=== PATIENT | male | born 1970 | race Caucasian/White ===

== ENCOUNTER 2021-03-04 19:42 | Emergency (ER) | payer BC ==
[~2021-03-04] VITALS: Ht 175.3 cm; Wt 99.5 kg
[2021-03-04 20:08] VITALS: BP 148/88
[2021-03-04 21:04] LABS: BASOPHILS % (AUTO) 0.7 % (0-1); EOSINOPHILS # (AUTO) 0.1 X10'3 (0-0.9); EOSINOPHILS % (AUTO) 1.3 % (0-6); HEMATOCRIT 46.1 % (42.0-52.0); HEMOGLOBIN 16.1 g/dl (14.0-17.9); LYMPHOCYTES # (AUTO) 1.8 X10'3 (1.1-4.8); LYMPHOCYTES % (AUTO) 43.8 % (21-51); MEAN CORPUSCULAR HEMOGLOBIN 30.8 PG (27.0-31.0); MEAN CORPUSCULAR HGB CONC 34.8 g/dL (33.0-36.5); MEAN CORPUSCULAR VOLUME 88.4 FL (78-98); MEAN PLATELET VOLUME 8.5 FL (7.4-10.4); MONOCYTES # (AUTO) 0.6 X10'3 (0-0.9); MONOCYTES % (AUTO) 13.8 % (2-12); NEUTROPHILS # (AUTO) 1.7 X10'3 (1.8-7.7); NEUTROPHILS % (AUTO) 40.4 % (42-75); PLATELET COUNT 162 X10'3 (140-440); RED BLOOD COUNT 5.22 X10'6 (4.70-6.10); RED CELL DISTRIBUTION WIDTH 12.6 % (11.5-14.5); WHITE BLOOD COUNT 4.2 X10'3 (4.5-11.0)
[2021-03-04] MEDS ORDERED: dexamethasone sod phosphate 10mg/ml inj PO STA (21:09)
[2021-03-04 21:12] LABS: ALANINE AMINOTRANSFERASE 57 U/L (12-78); ALBUMIN 3.9 G/DL (3.4-5.0); ALKALINE PHOSPHATASE 58 IU/L (46-116); ANION GAP 10 (8-16); ASPARTATE AMINO TRANSFERASE 37 U/L (10-37); BILIRUBIN,TOTAL 0.6 MG/DL (0.1-1.0); BLOOD UREA NITROGEN 13 MG/DL (7-18); BUN/CREATININE RATIO 14.4 (5.4-32.0); CALCIUM 9.5 MG/DL (8.5-10.1); CHLORIDE 99 MMOL/L (99-107); GLUCOSE 281 MG/DL (70-104); SODIUM 137 MMOL/L (135-145); TOTAL CARBON DIOXIDE 28.4 MMOL/L (24-32); TOTAL PROTEIN 7.7 G/DL (6.4-8.2); eGFR 90 ML/MIN
[2021-03-04] MEDS ORDERED: DEXA6TAB6 PO (21:14)
[2021-03-04] MEDS ORDERED: ALBU8.5H17 IH (21:14)
== END 2021-03-04 21:30 | disposition home or self-care (01) ==
LOC: ER 19:43
DX: U07.1 COVID-19 (principal); R06.02 Shortness of breath; R07.89 Other chest pain; E11.9 Type 2 diabetes mellitus without complications; F17.290 Nicotine dependence, other tobacco product, uncomplicated; Z98.890 Other specified postprocedural states; Z88.0 Allergy status to penicillin; Z79.899 Other long term (current) drug therapy
CPT/HCPCS: 36415; 80053; 83880; 84484; 85025; 85379; 93005; 99284; J1100

== ENCOUNTER 2025-01-08 14:07 | Inpatient (IN) | payer BC, MEDICAID ==
[~2025-01-08] VITALS: Ht 175.3 cm; Wt 80.5 kg
[~2025-01-08 14:07] MED LIST: ALBU8.5H17 IH; DEXA6TAB6 PO; METH4TAB81 PO
--- NOTE | 2025-01-08 14:38 | Physician Documentation ---
History of Present Illness ~ Chief Complaint: Weakness Stated Complaint: MULTIPLE MED COMPLAINTS Time Seen by MD: 14:18 OK to notify your PCP?: Yes Primary Medical Doctor: [facility] HPI This is a 54-year-old male with a history of type 2 diabetes. He presents to the emergency department reporting that he has been out of his diabetes medicin es as well as his blood pressure medicine since October. He is experiencing symptoms of hyperglycemia including nausea, dizziness, dry mouth, frequent urination and excessive thirst. Denies chest pain and shortness of breath. He also denies fever or chills. Medication Reconciliation Allergies: Coded Allergies: Penicillins (Verified Allergy, Unknown, 01/08/25) Scheduled Dexamethasone (Decadron), 1 TAB PO ONCE Methylprednisolone (Medrol Dosepak), 0 PO UD Scheduled PRN Albuterol Sulfate (Proair Hfa), 2 PUFFS IH Q4H PRN for SOB or wheezing Past Medical History Past Medical History: Heart Valve Disease, Hypertension, Sleep Apnea, Diabetes Past Surgical History: orthopedic surgeries Alcohol Use: None Drug Use: none Lives with: Family Lives In: Home Occupation: employed Review of Systems ROS As stated above in the HPI, otherwise all systems are reviewed and negative. Physical Exam Vital Signs: Temperature: 98.2, Source: Temporal, Heart Rate: 90, Respiratory Rate: 18, BP: 109/76, Pulse Oximetry: 98, Weight: 80.500 Oxygen Flow Rate: 0 Physical Exam General: Alert, no apparent distress. HEENT: PERRL, EOMI, no injection, dry mucous membranes. Neck: Full range of motion. Respiratory: Lungs clear, no respiratory distress. Chest: No accessory muscle use. Cardiovascular: Regular rate and rhythm, no murmurs. Gastrointestinal: Soft, nontender, nondistended. Bowels sounds present. Extremities: Normal range of motion, no deformity. Neurologic: Oriented x4. Psychiatric: Normal mood and affect. Skin: Normal color, warm and dry. No edema, no ecchymosis. Progress Results/Orders Results/Orders Orders - TIKI CORLEY NP Saline Lock (01/08/25 14:30) Accucheck (01/08/25 16:00) Accucheck (01/08/25 17:00) Accucheck (01/08/25 18:00) Page Hospitalist (01/08/25 ) Normal Saline 1000ml (0.9% Sodium Chlori (01/08/25 17:05) BMP (01/08/25 17:03) Completed Orders - TIKI CORLEY PRODUCT EXPERT CMP (01/08/25 14:18) Cbc/Diff (01/08/25 14:18) Lipase (01/08/25 14:18) Ondansetron Inj. (Zofran 4mg/2ml Vial) (01/08/25 14:30) Normal Saline 1000ml (0.9% Sodium Chlori (01/08/25 14:30) Acetone, Serum (01/08/25 14:30) Insulin Regular, Human (Humulin R 10 Uni (01/08/25 15:35) Normal Saline 1000ml (0.9% Sodium Chlori (01/08/25 15:35) Medications Received in ER Medications (Trade) Dose Ordered Sig/Steph Route PRN Reason Start Time Stop Time Status Last Admin Dose Admin (Zofran 4mg/2ml vial) 4 mg ONCE ONCE IV 01/08/25 14:30 01/08/25 14:31 DC 01/08/25 15:54 4 MG (0.9% sodium chloride (NS) 1000ml IV soln) 1,000 ml ONCE ONCE IVB 01/08/25 14:30 01/08/25 14:31 DC 01/08/25 15:56 1,000 ML (HumuLIN R 10 units per 0.1 ML syringe) 10 units ONCE ONCE SQ 01/08/25 15:35 01/08/25 15:36 DC 01/08/25 15:55 10 UNITS Sodium Chloride 1,000 ml @ 1,000 mls/hr ONCE ONCE IV 01/08/25 15:35 01/08/25 16:34 DC 01/08/25 15:56 1,000 MLS/HR Vital Signs 01/08/25 01/08/25 14:13 16:03 Temp 98.2 Pulse 90 Resp 18 B/P (MAP) 109/76 Pulse Ox 98 O2 Flow Rate 0 Laboratory Tests Test 01/08/25 14:15 01/08/25 14:26 01/08/25 14:47 01/08/25 16:40 Glucometer 397 H 263 H White Blood Count 10.3 Red Blood Count 5.52 Hemoglobin 17.4 Hematocrit 49.3 Mean Corpuscular Volume 89.5 Mean Corpuscular Hemoglobin 31.5 H Mean Corpuscular Hemoglobin Concent 35.2 Red Cell Distribution Width 12.2 Platelet Count 248 Mean Platelet Volume 9.0 Neutrophils (%) (Auto) 62.2 Lymphocytes (%) (Auto) 30.3 Monocytes (%) (Auto) 6.0 Eosinophils (%) (Auto) 0.9 Basophils (%) (Auto) 0.6 Neutrophils # (Auto) 6.4 Lymphocytes # (Auto) 3.1 Monocytes # (Auto) 0.6 Eosinophils # (Auto) 0.1 Basophils # (Auto) 0.1 CBC Comment Sodium Level 133 L Potassium Level 4.2 Chloride Level 94 L Carbon Dioxide Level 19.9 L Anion Gap 19 H Blood Urea Nitrogen 23 H Creatinine 1.02 Estimated GFR/1.73 m2 77 BUN/Creatinine Ratio 22.5 H Glucose Level 389 H Calcium Level 9.6 Total Bilirubin 0.7 Aspartate Amino Transf (AST/SGOT) 41 H Alanine Aminotransferase (ALT/SGPT) 77 Alkaline Phosphatase 81 Total Protein 8.0 Albumin 4.1 Globulin 3.9 Albumin/Globulin Ratio 1.1 Lipase 55 Chemistry Comments Acetone Level Small Medical Decision Making Additional information obtaine: old records Findings 05/18/24 patient was seen for acute sinusitis. Differential Dx:Considerations: Include: other Additional Information Patient with evidence of acidosis, dehydration, hyperglycemia. Was given three liters NS as bolus in ER and 10 units subcutaneous insulin. Still feeling unwell and did have small ketones in serum. Paged hospitalist, Dr. Aguilar agrees to admit. Most Likely Diagnoses 1. Poorly controlled type 2 diabetes with severe hyperglycemia: The patients glucose of 389 mg/dL after three months off tirzepatide, empagliflozin, and sulfonylurea, with classic symptoms (polydipsia, polyuria, dehydration), is consistent with significant hyperglycemia due to medication non-adherence. 2. Dehydration/volume depletion from osmotic diuresis: Hyperglycemia leads to glycosuria and osmotic diuresis, causing volume depletion and mild hyponatremia (Na 133 mmol/L). Symptoms of dizziness and dry mouth further support this. 3. Mild metabolic acidosis: The low CO2 (19.9 mmol/L) and elevated anion gap (19) suggest a mild high-anion gap metabolic acidosis, likely from ketosis and/or lactic acid accumulation due to dehydration and relative insulin deficiency. Most Important Not to Miss Diagnoses 1. Diabetic ketoacidosis (DKA): DKA is suggested by hyperglycemia, anion gap metabolic acidosis, and small serum ketones. While glucose is lower than classic DKA, SGLT2 inhibitor withdrawal can precipitate euglycemic or mild DKA. DKA is a medical emergency and must be ruled out by assessing for significant acidosis (pH <7.3, bicarbonate <18 mmol/L), elevated ketones, and clinical symptoms (nausea, vomiting, abdominal pain).[1-2] 2. Hyperosmolar hyperglycemic state (HHS): HHS is characterized by severe hyperglycemia, dehydration, and altered mental status, usually with minimal ketosis and mild acidosis. The glucose here is below classic HHS thresholds (>600 mg/dL), but the clinical picture and lab findings warrant close monitoring for evolving HHS.[1][3] 3. Mixed DKA/HHS: Mixed presentations can occur, especially in patients with SGLT2 inhibitor withdrawal, and may present with overlapping features (moderate hyperglycemia, anion gap, small ketones).[1-2] Departure Time of Disposition: 17:12 Disposition: 09 ADMITTED INPATIENT Impression: Primary Impression: Dehydration Additional Impression: Type 2 diabetes mellitus Condition: Stable Referrals: EMERGENCY,DEPARTMENT (PCP) Education Educated: Patient Educated regarding: diagnosis, treatment, prognosis, need for follow up Signature Scribe Signature: x Attestation: The note accurately reflects work and decisions made by me.Tiki Britt NP 01/08/25 14:36 TIKI CORLEY NP Jan 08, 2025 14:38
[2025-01-08 14:47] LABS: MEAN PLATELET VOLUME 9.0 FL (7.4-10.4); RED CELL DISTRIBUTION WIDTH 12.2 % (11.5-14.5)
[2025-01-08 15:03] LABS: CREATININE 1.02 MG/DL (0.60-1.10); TOTAL CARBON DIOXIDE 19.9 MMOL/L (24-32); eCRCL 85 ML/MIN; eGFR 77 ML/MIN
[2025-01-08 15:16] LABS: ACETONE SMALL (NEGATIVE)
[2025-01-08] MEDS: ondansetron/PF 4mg/2ml inj IV ONE (15:54)
[2025-01-08] MEDS: insulin regular, human 10 units/0.1 ml syringe SQ ONE (15:55)
[2025-01-08] MEDS: normal saline 1000ML IV soln IVB ONE (15:56)
[2025-01-08] MEDS: normal saline 1000ml 1,000 ML IV ONE ×2 (15:56→18:16)
[2025-01-08] MEDS ORDERED: EMPA25TA PO ×2 (16:59→23:41)
[2025-01-08] MEDS ORDERED: TIRZ2.5P SQ (16:59)
[2025-01-08] MEDS ORDERED: LANTUS SUBCUT (16:59)
[2025-01-08] MEDS ORDERED: insulin glargine (Lantus) pen - multi-dose SQ ONE (17:00)
[2025-01-08 17:46] LABS: CREATININE 0.98 MG/DL (0.60-1.10); TOTAL CARBON DIOXIDE 22.9 MMOL/L (24-32); eCRCL 88 ML/MIN; eGFR 80 ML/MIN
[2025-01-08] MEDS ORDERED: mag hydrox/Alum hydrox/simeth 30ml oral suspension PO PRN (18:00)
[2025-01-08] MEDS ORDERED: magnesium sulf-water 4G/100mL 100 ML IV PRN (18:00)
[2025-01-08] MEDS ORDERED: HYDROcodone/acetaminophen 5mg/325mg tablet PO PRN (18:00)
[2025-01-08] MEDS ORDERED: potassium Cl 40MEQ/1/2NS 520ml 520 ML IV PRN (18:00)
[2025-01-08] MEDS ORDERED: magnesium Cl slow-release 64mg tablet PO PRN (18:00)
[2025-01-08] MEDS ORDERED: HYDROcodone/acetaminophen 10/325mg tab PO PRN (18:00)
[2025-01-08] MEDS ORDERED: ondansetron/PF 4mg/2ml inj IV PRN (18:00)
[2025-01-08] MEDS ORDERED: morphine 4 MG/ML inj SYRINge IV PRN (18:00)
[2025-01-08] MEDS ORDERED: magnesium sulf-water 2g/50mL 50 ML IV PRN (18:00)
[2025-01-08] MEDS ORDERED: magnesium hydroxide 30ml (MOM) UD suspension PO PRN (18:00)
[2025-01-08] MEDS ORDERED: potassium Cl 20 mEq SR tablet PO PRN ×2 (18:00)
[2025-01-08] MEDS ORDERED: DEXTROSE 15 GM of carb/4 tabs (each vial/BOTTLE has 4 tablets) PO PRN ×2 (18:10)
[2025-01-08] MEDS ORDERED: glucagon, human recombinant 1mg kit SUBCUT PRN (18:10)
[2025-01-08] MEDS ORDERED: dextrose 50%-water 50ml dispensing syringe IV PRN ×2 (18:10)
--- NOTE | 2025-01-08 18:15 | HISTORY AND PHYSICAL-Residence ---
History & Physical Providers to CC Resident Creating Document: CELIO MOULTON, EVERARDO ~ History of Present Illness Primary Medical Doctor: [facility] Reason for Admit\Complaint: Increased blood glucose History of Present Illness This is a 54-year-old male with a history of type 2 diabetes presents to the emergency department with complaints of nausea, dizziness, dry mouth, burning micturition, frequent urination, excessive thirst that started a week ago. Patient reports that he has been out of his diabetes medicines as well as his blood pressure medicine since October this year as he has some issues with his insurance and was not able to afford them.He also reports that his urine smells very sweet. Patient also complaining of burning sensation in the epigastrium that started 4 days ago. He Denies chest pain or shortness of breath. He also denies fever or chills, vomiting, headache, abdominal pain. Patient says that he was diagnosed with diabetes mellitus type 2 about 8-9 years ago, was seeing his PCP, was on regular medication for diabetes, had some issues with his insurance lately and hence was unable to afford his medications. Allergies: Coded Allergies: Penicillins (Verified Allergy, Unknown, 01/08/25) Home Medications Home Medications Active Medrol Dosepak (Methylprednisolone) 4 Mg Tab.ds.pk 0 PO UD take 6 Pills Day 1, 5 Pills Day 2, 4 Pills Day 3, 3 Pills Day 4, 2 Pills Day 5 and 1 pill Day 6 Proair Hfa (Albuterol Sulfate) 1 Puff Inh 2 Puffs IH Q4H PRN may sub any other formulary albuterol inhaler Decadron (Dexamethasone) 6 Mg Tablet 1 Tab PO ONCE 7 Days Past Medical History Past Medical History HYPERTENSION DIABETES MELLITUS TYPE 2 HYPOTHYROIDISM HYPERLIPIDEMIA SLEEP APNEA Past Surgical History Surgical History Comment NO SIGNIFICANT SURGICAL HISTORY Past Social History Social History Comment Patient started smoking at the age of 16 years, used to smoke 1 pack every 3 days, currently smokes 1 pack per day. Has not consumed alcohol in the last 16 years. No illicit drug use. Patient lives at home with family. 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 History of heart disease in the family. Smoking: Other Alcohol Use: None Drug Use: None Lives with: Family Lives In: Home Occupation: employed ROS ROS Constitutional: No fever, no dizziness, has weakness, decrease in appetite HEENT: Normal vision. No sore throat, epistaxis, tinnitus Cardiovascular: No chest pain/discomfort, palpitations, syncope. no pedal edema Respiratory: No sob, cough,hemoptysis Gastrointestinal: Mild epigastric burning , reports nausea, no vomiting, No diarrhea, no melena. Genitourinary: Reports frquency, urgency, incontinence, nocturia. Reports dysuria, no hematuria Musculoskeletal: Normal, no pains Endocrine: No fatigue, reports polydipsia, polyuria. No heat or cold intolerance Neurologic: No headache, vertigo. No weakness, numbness or tingling of extremities Psychiatric: No hallucinations/delusions, no anhedonia, no suicidal ideation Hematologic: No bruises Exam Vitals: Vital Signs Date Time Temp Pulse Resp B/P (MAP) Pulse Ox O2 Delivery O2 Flow Rate FiO2 01/08/25 16:03 01/08/25 14:13 98.2 90 18 98 0 General: General: Awake, oriented to person, place and time HEENT: Conjunctive are pale, sclerae clear, no icterus, pupil is equal in both sides, reactive to light, no ear discharge, no pharyngeal erythema or an edema. Neck: Supple, no JVD, no lymphadenopathy and thyromegaly. Chest: Equal air entry on both lungs, no additional sounds no rhonchi no wheezing at the moment. Cardiovascular: S1-S2 regular sinus rhythm and, regular rate, no gallops, no rubs, no murmurs Abdomen: No visible peristalsis, Bowel sounds present on auscultation, soft, no tenderness, no guarding, no rigidity. Extremities: No obvious deformities, no pitting edema bilaterally, capillary refill intact, peripheral pulsations are intact on both sides Neurologic: Mental status: alert and conscious, oriented to place, person and time, preserved memory, normal speech. Cranial nerves I-XII: Normal. Motor system: Preserved power, coordination, no evidenced involuntary movements, strength 5/5 in four extremities. Sensory system: Preserved temperature, pain and vibration sensation. 2+ deep tendon reflexes in biceps, triceps, quadriceps. Negative Babinski. Cerebellar: No nystagmus, dysdiadochokinesia, normal [id number] testing. Musculoskeletal: No joint swelling, deformities, inflammations, and no scoliosis and back tenderness Skin: Warm and dry. Dry oral mucosa. Diagnostic Data Last Recorded Lab Results: 01/08/25 1426 01/08/25 1719 Advance Care Planning Advanced Care plannin - 30 Minutes (Full code) Additional Plan Anion gap metabolic acidosis Severe hyperglycemia Increased blood sugar levels Elevated anion gap of 19 Bicarb reduced Blood glucose levels 389 ABG ordered. Follow-up HbA1c, lipid panels, U tox ordered .follow-up 10 units of regular insulin given in the ED. Patient placed on hyperglycemia/ hypoglycemia protocol. Lantus 10 units, lispro 5 units. Patient received 1 L bolus NS in the ED. Patient currently on RL 150 cc/hour dehydration Patient looks dry clinically-sunken eyes, dry mouth Blood pressure on the lower side Patient being treated with IV fluids. Mild hyponatremia- Na- 133 We will continue to monitor labs. Hyperlipidemia- Lipid panel ordered. Follow-up Start medications accordingly Patient says was on atorvastatin at home. Hypothyroidism- TSH ordered. Follow-up Code status: Full code Pain medication: Morphine/ [place] DVT prophylaxis: SubQ heparin Prognosis: Guarded Diet: Carb controlled diet Celio Moulton PGY-1 Date of Service: Jan 08, 2025 Billing Provider: KSENIA ANDRE MD,CELIO, RES Jan 08, 2025 18:15
[2025-01-08 18:59] LABS: LEUKOCYTE ESTERASE ,URINE NEGATIVE (Neg); NITRITES, URINE NEGATIVE (Neg); OCCULT BLOOD,URINE NEGATIVE (Neg)
[2025-01-08 19:05] LABS: UA COLLECTION TYPE NON-SPECIFIED
[2025-01-08 19:14] LABS: MUCUS STRANDS NONE SEEN /LPF (Neg); SQUAMOUS EPITHELIAL CELL,UR NONE SEEN /LPF (FEW)
[2025-01-08 19:18] LABS: ABG BASE EXCESS -5.9 mmol/L (-2.0-3.0); ABG HCO3 19.4 mmol/L (21.0-28.0); ABG OXYGEN SATURATION 95.3 % (94.0-98.0); ABG PCO2 (T) 37.3 mmHg (35.0-48.0); ABG PH (T) 7.332 (7.350-7.450); ABG PO2 (T) 79.5 mmHg (83.0-108.0); ALLEN'S TEST POSITIVE; FCOHb 1.3 % (0.5-1.5); FHHb 4.6 % (0.0-5.0); FIO2 21.0 mmHg/%; FMetHb 0.3 % (0.0-1.5); FO2Hb 93.8 % (94.0-98.0); MODE ROOM AIR; PATIENT TEMPERATURE 36.7; TOTAL HEMOGLOBIN 15.2 G/dl (13.5-17.5)
[2025-01-08] MEDS: K and/or MAG REPLACEMENT MC SCH (19:31)
[2025-01-08] MEDS: docusate sod 100mg capsule PO SCH (19:33)
[2025-01-08] MEDS: heparin, porcine 5000 units/ml vial SQ SCH (19:34)
[2025-01-08] MEDS: ringers solution, lacted 1,000 ML IV SCH (19:37)
[2025-01-08 19:52] LABS: URINE AMPHETAMINE SCREEN NEGATIVE (Neg); URINE BARBITUATE SCREEN NEGATIVE (Neg); URINE BENZODIAZEPINES SCREEN NEGATIVE (Neg); URINE CANNABINOID SCREEN NEGATIVE (Neg); URINE COCAINE SCREEN NEGATIVE (Neg); URINE METHADONE SCREEN NEGATIVE (Neg); URINE OPIATE SCREEN NEGATIVE (Neg); URINE PHENCYCLIDINE SCREEN NEGATIVE (Neg)
[2025-01-08] MEDS: INSULIN LISPRO 100 UNIT/ML INSULN.PEN MULTI-DOSE SQ SCH (21:00)
[2025-01-08] MEDS: insulin glargine (Lantus) pen - multi-dose SQ SCH (21:58)
[2025-01-08 22:55] VITALS: BP 121/87; PULSE 77; RESP 15; TEMP 97.4; O2SAT 97
[2025-01-08] MEDS ORDERED: THYR30TA21 PO (23:41)
[2025-01-08] MEDS ORDERED: FENO67CA14 PO (23:41)
[2025-01-08] MEDS ORDERED: GLIP10TA18 PO (23:41)
[2025-01-08] MEDS ORDERED: ATOR20TA66 PO (23:41)
[2025-01-08] MEDS ORDERED: TIRZ10PE SQ (23:41)
[2025-01-08] MEDS ORDERED: LISI10TA27 PO (23:41)
[2025-01-09 06:00] VITALS: BP 116/71; PULSE 98; RESP 20; TEMP 97.9; O2SAT 97
[2025-01-09 06:20] LABS: MEAN PLATELET VOLUME 9.0 FL (7.4-10.4); RED CELL DISTRIBUTION WIDTH 12.3 % (11.5-14.5)
[2025-01-09 06:46] LABS: CHOL/HDL RATIO 4.5 (0.00-4.99); CREATININE 0.84 MG/DL (0.60-1.10); LDL CHOLESTEROL 43 MG/DL (50-100); TOTAL CARBON DIOXIDE 23.5 MMOL/L (24-32); eCRCL 103 ML/MIN; eGFR > 90 ML/MIN
[2025-01-09 08:00] VITALS: RESP 20; O2SAT 97
[2025-01-09] MEDS: INSULIN LISPRO 100 UNIT/ML INSULN.PEN MULTI-DOSE SQ SCH (09:00)
[2025-01-09 10:00] VITALS: BP 120/73; PULSE 57; RESP 16; TEMP 98.6; O2SAT 98
[2025-01-09] MEDS ORDERED: INSU300I12 SUBCUT (10:04)
[2025-01-09 10:08] VITALS: BP_SYST 120; PULSE 57
[2025-01-09] MEDS ORDERED: METF-1203 PO (11:51)
[2025-01-09] MEDS ORDERED: PIOG45TA5 PO (11:51)
[2025-01-09] MEDS ORDERED: ASPI-1265 PO (11:52)
--- NOTE | 2025-01-09 15:57 | DISCHARGE SUMMARY-Residence ---
Discharge Summary Providers to CC Resident Creating Document: MOSES GARCIA RES ~ Discharge Summary Admission Diagnosis: Diabetes mellitus, acidosis Hospital Course DATE OF ADMISSION: 01/08/25 DATE OF DISCHARGE: 01/09/25 Discharge Diagnosis\Comment: Poorly controlled diabetes mellitus type 2 Dehydration Mild hyponatremia resolved Hyperlipidemia Hypothyroidism Operations\Procedures: None Consultants: None Complications: None Condition on DC: Stable New Medications: Aspirin (Aspirin) 81 Mg Tab.chew 1 TAB PO DAILY for 30 Days, #30 TAB.CHEW Metformin HCl (Metformin HCl) 500 Mg Tablet 1 TAB PO DAILY for 30 Days, #120 TAB Pioglitazone HCl (Actos) 45 Mg Tablet 1 TAB PO DAILY for 30 Days, #30 TAB 0 Refills Continued Medications: Albuterol Sulfate (Proair Hfa) 1 Puff Inh 2 PUFFS IH Q4H PRN for SOB or wheezing, #1 INHALER may sub any other formulary albuterol inhaler Atorvastatin Calcium (Atorvastatin Calcium) 20 Mg Tablet 1 TAB PO DAILY Fenofibrate,Micronized (Fenofibrate) 67 Mg Capsule 1 CAP PO DAILY Lisinopril (Lisinopril) 10 Mg Tablet 1 TAB PO DAILY Thyroid,Pork (Pattern Data Operator Thyroid) 30 Mg Tablet 1 TAB PO QAM Discontinued Medications: Empagliflozin (Jardiance) 25 Mg Tablet 1 TAB PO DAILY Glipizide (Glipizide) 10 Mg Tablet 1 TAB PO BID Tirzepatide (Mounjaro) 10 Mg/0.5 Ml Pen.injctr 10 MG SQ Q7D Discharge Summary: Hospital course This is a 54-year-old male with with a past medical history of type 2 diabetes BPH to emergency department complaining nausea, dry mouth, burning micturition, frequent urination and excesstive thirst. Blood glucose was 386 HbA1c was greater 12 received, initially received 10 units of regular insulin was placed on hyper/hypoglycemia protocol and a Lantus 10 units and lispro 5 units, he also received 1 L of bolus NS laer continued on LR 150ml/hr. Blood glucose was improving with this regimen. Patient also had anion gap metabolic acidosis. Patient reports that he was out of his diabetic medications as was the blood pressure medication since October this year because of some problems with insurance and was not able to afford them. Apart from that for his hyperlipidemia continued his home medication Tricor and atorvastatin for hypothyroidism, thyroid pork 30mgwas continued, for blood pressure management home medication lisinopril was continued. Patient was stable and ready for discharge and was counselled on medication adherence, diet management for diabetes mellitus. Physical Examination General: Awake, oriented to person, place and time HEENT: Conjunctive are pale, sclerae clear, no icterus, pupil is equal in both sides, reactive to light, no ear discharge, no pharyngeal erythema or an edema. Neck: Supple, no JVD, no lymphadenopathy and thyromegaly. Chest: Equal air entry on both lungs, no additional sounds no rhonchi no wheezing at the moment. Cardiovascular: S1-S2 regular sinus rhythm and, regular rate, no gallops, no rubs, no murmurs Abdomen: No visible peristalsis, Bowel sounds present on auscultation, soft, no tenderness, no guarding, no rigidity. Extremities: No obvious deformities, no pitting edema bilaterally, capillary refill intact, peripheral pulsations are intact on both sides Neurologic: Mental status: alert and conscious, oriented to place, person and time, preserved memory, normal speech. Cranial nerves I-XII: Normal. Motor system: Preserved power, coordination, no evidenced involuntary movements, strength 5/5 in four extremities. Sensory system: Preserved temperature, pain and vibration sensation. 2+ deep tendon reflexes in biceps, triceps, quadriceps. Negative Babinski. Cerebellar: No nystagmus, dysdiadochokinesia, normal [id number] testing. Musculoskeletal: No joint swelling,inflammation Skin: Warm and dry. Labs Laboratory Tests Test 01/08/25 14:15 01/08/25 14:26 01/08/25 14:47 01/08/25 16:40 Glucometer 397 mg/dl 263 mg/dl White Blood Count 10.3 X10'3 Red Blood Count 5.52 X10'6 Hemoglobin 17.4 g/dl Hematocrit 49.3 % Mean Corpuscular Volume 89.5 FL Mean Corpuscular Hemoglobin 31.5 PG Mean Corpuscular Hemoglobin Concent 35.2 g/dL Red Cell Distribution Width 12.2 % Platelet Count 248 X10'3 Mean Platelet Volume 9.0 FL Neutrophils (%) (Auto) 62.2 % Lymphocytes (%) (Auto) 30.3 % Monocytes (%) (Auto) 6.0 % Eosinophils (%) (Auto) 0.9 % Basophils (%) (Auto) 0.6 % Neutrophils # (Auto) 6.4 X10'3 Lymphocytes # (Auto) 3.1 X10'3 Monocytes # (Auto) 0.6 X10'3 Eosinophils # (Auto) 0.1 X10'3 Basophils # (Auto) 0.1 X10'3 CBC Comment Sodium Level 133 MMOL/L Potassium Level 4.2 MMOL/L Chloride Level 94 MMOL/L Carbon Dioxide Level 19.9 MMOL/L Anion Gap 19 Blood Urea Nitrogen 23 MG/DL Creatinine 1.02 MG/DL Estimated GFR/1.73 m2 77 ML/MIN BUN/Creatinine Ratio 22.5 Glucose Level 389 MG/DL Hemoglobin A1c > 12.0 % Calcium Level 9.6 MG/DL Total Bilirubin 0.7 MG/DL Aspartate Amino Transf (AST/SGOT) 41 U/L Alanine Aminotransferase (ALT/SGPT) 77 U/L Alkaline Phosphatase 81 IU/L Total Protein 8.0 G/DL Albumin 4.1 G/DL Globulin 3.9 G/DL Albumin/Globulin Ratio 1.1 Lipase 55 U/L Chemistry Comments Acetone Level Small Test 01/08/25 17:05 01/08/25 17:19 01/08/25 18:43 01/08/25 19:13 Urine Specimen Description Non-specified Urine Color Yellow Urine Clarity Clear Urine pH 5.5 Urine Specific [place] 1.020 Urine Protein Negative mg/dl Urine Glucose (UA) >=1000 mg/dl Urine Ketones >=80 mg/dl Urine Occult Blood Negative Urine Nitrite Negative Urine Bilirubin Negative Urine Urobilinogen 0.2 E.U/dL Urine Leukocyte Esterase Negative Urine RBC 0-2 /HPF Urine WBC 0-4 /HPF Urine Squamous Epithelial Cells None seen /LPF Urine Bacteria None seen /HPF Urine Mucus None seen /LPF Urine Culture Indicated Not ind Volume Urine Centrifuged 10 ml Urine Comment Urine Opiates Screen Negative Urine Methadone Screen Negative Urine Fentanyl Screen Negative Urine Barbiturates Screen Negative Urine Phencyclidine Screen Negative Urine Amphetamines Screen Negative Urine Benzodiazepines Screen Negative Urine Cocaine Screen Negative Urine Cannabinoids Screen Negative Drug Screen Comment Sodium Level 140 MMOL/L Potassium Level 4.4 MMOL/L Chloride Level 102 MMOL/L Carbon Dioxide Level 22.9 MMOL/L Anion Gap 15 Blood Urea Nitrogen 22 MG/DL Creatinine 0.98 MG/DL Estimated GFR/1.73 m2 80 ML/MIN BUN/Creatinine Ratio 22.4 Glucose Level 238 MG/DL Calcium Level 8.5 MG/DL Albumin 3.5 G/DL Thyroid Stimulating Hormone (TSH) 0.95 ulU/ml Chemistry Comments Lactic Acid Level 0.7 MMOL/L Blood Gas Specimen Type Arterial Blood Gas Puncture Site Lr O2 Saturation 95.3 % Arterial Blood pH (Temp corrected) 7.332 Arterial Blood pCO2 (Temp correct) 37.3 mmHg Arterial Blood pO2 (Temp corrected) 79.5 mmHg Arterial Blood PO2/FiO2 Ratio 3.86 mmHg/% Arterial Blood HCO3 19.4 mmol/L Arterial Blood Base Excess -5.9 mmol/L Arterial Blood Oxyhemoglobin 93.8 % Arterial Blood Carboxyhemoglobin 1.3 % Arterial Blood Methemoglobin 0.3 % Arterial Blood Deoxyhemoglobin 4.6 % Antoni Test Positive Blood Gas Hemoglobin 15.2 G/dl Blood Gas Temperature 36.7 Blood Gas Modality Room air FiO2 21.0 mmHg/% Blood Gas Critical Value Called To Lazaro lilly rn Test 01/08/25 21:41 01/09/25 05:27 01/09/25 06:51 01/09/25 11:53 Glucometer 141 mg/dl 157 mg/dl 209 mg/dl White Blood Count 9.1 X10'3 Red Blood Count 4.41 X10'6 Hemoglobin 14.0 g/dl Hematocrit 39.9 % Mean Corpuscular Volume 90.4 FL Mean Corpuscular Hemoglobin 31.7 PG Mean Corpuscular Hemoglobin Concent 35.0 g/dL Red Cell Distribution Width 12.3 % Platelet Count 202 X10'3 Mean Platelet Volume 9.0 FL Neutrophils (%) (Auto) 42.4 % Lymphocytes (%) (Auto) 49.0 % Monocytes (%) (Auto) 6.3 % Eosinophils (%) (Auto) 1.8 % Basophils (%) (Auto) 0.5 % Neutrophils # (Auto) 3.8 X10'3 Lymphocytes # (Auto) 4.4 X10'3 Monocytes # (Auto) 0.6 X10'3 Eosinophils # (Auto) 0.2 X10'3 Basophils # (Auto) 0.0 X10'3 CBC Comment Sodium Level 141 MMOL/L Potassium Level 4.0 MMOL/L Chloride Level 105 MMOL/L Carbon Dioxide Level 23.5 MMOL/L Anion Gap 13 Blood Urea Nitrogen 17 MG/DL Creatinine 0.84 MG/DL Estimated GFR/1.73 m2 > 90 ML/MIN BUN/Creatinine Ratio 20.2 Glucose Level 163 MG/DL Calcium Level 8.1 MG/DL Magnesium Level 2.2 MG/DL Total Bilirubin 0.5 MG/DL Aspartate Amino Transf (AST/SGOT) 38 U/L Alanine Aminotransferase (ALT/SGPT) 52 U/L Alkaline Phosphatase 51 IU/L Total Protein 5.7 G/DL Albumin 2.9 G/DL Globulin 2.8 G/DL Albumin/Globulin Ratio 1.0 Triglycerides Level 492 MG/DL Cholesterol Level 131 MG/DL LDL Cholesterol 43 MG/DL HDL Cholesterol 29 MG/DL Cholesterol/HDL Ratio 4.5 Chemistry Comments *Problems/Diagnosis: (1) Dehydration Status: Resolved Total Time Spent on D/C: > 30 Minutes Date of Service: Jan 09, 2025 Billing Provider: KSENIA ANDRE MD,MOSES, RES Jan 09, 2025 15:57
[2025-01-10] MEDS ORDERED: thyroid, pork 30mg tablet PO SCH (08:00)
== END 2025-01-09 13:00 | disposition home or self-care (01) | DRG 420 ==
LOC: ER 14:10 → ED HOLD 17:29 → ORTHO 4S 22:44
PROVIDERS: ADMIT Internal Medicine; ATTEND Internal Medicine
DX: E11.65 Type 2 diabetes mellitus with hyperglycemia (principal); E87.20 Acidosis, unspecified; I10 Essential (primary) hypertension; E03.9 Hypothyroidism, unspecified; E86.0 Dehydration; E87.1 Hypo-osmolality and hyponatremia; Z88.0 Allergy status to penicillin; Z79.899 Other long term (current) drug therapy
CPT/HCPCS: 36415; 36600; 80048; 80053; 80061; 80305; 81001; 82009; 82803; 82948; 83036; 83605; 83690; 83735; 84443; 85018; 85025; 87081; 96361; 96374; 99285; G0378; J1644; J1815; J2405; J7030; J7120